=== PATIENT | female | born 1990 | race Caucasian/White ===

== ENCOUNTER 2017-10-29 10:32 | Emergency (ER) | payer OTHER ==
[2017-10-29 11:14] VITALS: BP 119/70; BMI 30.8
--- NOTE | 2017-10-29 11:45 | DR.GENAD ---
HPI - PCP Primary Care Physician: D - Complaint/Symptoms Chief Complaint Doctors Comments: Patient presents with complaint of a bump on her right upper outer lip for three days, now there is swelling and local erythema. She denies fever. Chief Complaint:: FRIDAY, SWELLING TO RIGHT SIDE OF FACE AT LIPS. THINKS IT IS STAPH. Self Treatment fo Chief Complaint: TYLENOL AND BENADRYL - Source History Provided: Patient - Timing Onset of Chief Complaint: 10/27/17 PMH - PMH Past Medical History: No Past Surgical History: No - Family History History of Family Medical Conditions: Yes Family Medical History: Cancer - Social History Alcohol Use: None Do you use any recreational Drugs:: No Lives With: Family Lives Where: Home - infectious screening In the last 2 months have you had wt loss of >10#?: NO Have you had fever, night sweats or hemotysis?: No Have you traveled outside the country in the last 6 months?: No Isolation: Standard ROS - Review of Systems Eyes: No Symptoms Reported ENTM: No Symptoms Reported Respiratoy: No Symptoms Reported Cardiovascular: No Symptoms Reported Gastrointestinal/Abdominal: No Symptoms Reported Genitourinary: No Symptoms Reported Neurological: No Symptoms Reported Musculoskeletal: No Symptoms Reported Integumentary: Lesions (right upper outer lip) Hematologic/Lymphatic: No Symptoms Reported Endocrine: No Symptoms Reported Psychiatric: No Symptoms Reported All Other Systems: Reviewed and Negative PE - Vital Signs Vitals: Temperature 98.7 F Pulse Rate 89 Respiratory Rate 16 Blood Pressure 119/70 O2 Sat by Pulse Oximetry 99 - General General Appearance: Alert - Head Head Exam: Normal Inspection, Atraumatic - Eyes Eye exam: Normal Appearance, PERRL, EOMI - ENT ENT Exam: Normal Exam External Ear Exam: Normal External Inspection TM/Canal Exam: Bilateral Normal Nose Exam: Normal Nose Exam Mouth Exam: Normal Inspection Throat Exam: Normal Inspection - Neck Neck Exam: Normal Inspection - Chest Chest Inspection: Normal Inspection - Respiratory Respiratory Exam: Normal Lung Sounds Bilat Respiratory Exam: Bilateral Clear to Auscultation - Cardiovascular Cardiovascular Exam: Regular Rate - Abdominal Exam Abdominal Exam: Normal Inspection Abdominal Tenderness: negative: RUQ, RLQ, LUQ, LLQ, Epigastrium, Suprapubic, Diffuse, Mild, Moderate, Severe, Other - Extremities Extremities Exam: Normal Inspection - Back Back Exam: Normal Inspection - Neurologic Neurological Exam: Alert, Oriented X3, CN II-XII Intact - Psychiatric Psychiatric Exam: Normal Affect, Normal Mood - Skin Skin Exam: Warm, Dry, Intact, Other (a non erythematous papule right upper outer lip, tender; had been expressed by patient) - Diagnosis Discharge Problem: Cellulitis and abscess of face - Discharge Plan Condition: Stable - Follow ups/Referrals Follow ups/Referrals: NFD,None [Primary Care Provider] - 3 days - Instructions
[2017-10-29] MEDS ORDERED: ROCEPHIN VIAL 1 GM IM ONE (11:56)
[2017-10-29] MEDS ORDERED: ROCEPHIN VIAL 1 GM ONE (12:10)
[2017-10-29] MEDS ORDERED: XYLOCAINE 1 % (PLAIN) ONE (12:10)
== END 2017-10-29 12:31 | disposition home or self-care (01) ==
LOC: ER 11:24
DX: L03.211 Cellulitis of face (principal); L02.01 Cutaneous abscess of face
CPT/HCPCS: 87075; 96372; 99282; J0696; J2001